=== PATIENT | female | born 1995 | race Caucasian/White ===

== ENCOUNTER 2021-11-07 05:53 | Emergency (ER) | payer SELFPAY ==
[~2021-11-07] VITALS: Ht 165.1 cm; Wt 59.0 kg
[2021-11-07] MEDS ORDERED: ACETAMINOPHEN 325MG TABLET PO STA (06:54)
[2021-11-07 09:38] LABS: BASOPHILS % 0.4 % (0.0-2.0); EOSINOPHILS % 2.9 % (0.0-5.0); HEMATOCRIT. 38.6 % (36.0-48.0); HEMOGLOBIN. 12.7 g/dL (12.0-16.0); LYMPHOCYTES % 14.4 % (20.0-50.0); MEAN CORPUSCULAR HEMOGLOBIN 29.4 pg (28.0-32.0); MEAN CORPUSCULAR VOLUME 89.3 fL (81.0-99.0); MEAN PLATELET VOLUME 7.3 fl (7.4-10.4); NEUTROPHILS % 73.3 % (40.0-76.0); PLATELET 288 x1000/uL (130-400); RED BLOOD CELL COUNT 4.33 mill/uL (4.2-5.4); RED CELL DISTRIBUTION WIDTH 13.8 % (11.6-14.6)
[2021-11-07 09:43] LABS: CHLORIDE 109 mEq/L (98-107)
[2021-11-07 10:37] LABS: HCG SCREEN NEGATIVE
[2021-11-07] MEDS ORDERED: ACET-2708 MT (11:49)
[2021-11-07 12:16] VITALS: BP 111/72
== END 2021-11-07 13:19 | disposition left against medical advice (07) ==
LOC: ER 05:53
DX: R10.13 Epigastric pain (principal)
CPT/HCPCS: 36415; 80053; 84703; 85025; 99283